=== PATIENT | female | born 1950 | race Caucasian/White ===

== ENCOUNTER 2020-08-27 09:53 | Outpatient (RCR) | payer MEDICARE, SELFPAY | END 2020-10-27 11:00 | disposition home or self-care (01) | LOC: HO.WCC 09:53 | PROVIDERS: Visit Provider Surgery | DX: I87.331 Chronic venous hypertension (idiopathic) with ulcer and inflammation of right lower extremity (principal); L97.812 Non-pressure chronic ulcer of other part of right lower leg with fat layer exposed; I48.20 Chronic atrial fibrillation, unspecified; Z87.891 Personal history of nicotine dependence; Z79.01 Long term (current) use of anticoagulants; Z72.89 Other problems related to lifestyle | CPT/HCPCS: 11042; 15271; 99212; Q4101; Q4160 ==